=== PATIENT | male | born 1970 | race Caucasian/White ===

== ENCOUNTER 2022-11-07 00:51 | Emergency (ER) | payer BC ==
[2022-11-07 00:59] VITALS: BP 182/102; PULSE 110; RESP 20; TEMP 99.4; BMI 31.3
== END 2022-11-07 01:41 | disposition home or self-care (01) ==
LOC: FER 00:51
DX: H11.31 Conjunctival hemorrhage, right eye (principal); I10 Essential (primary) hypertension
CPT/HCPCS: 99281-25